=== PATIENT | female | born 1940 | race Caucasian/White ===

== ENCOUNTER 2017-09-16 15:19 | Inpatient (IN) | payer BC, MEDICARE ==
[~2017-09-16] VITALS: Ht 165.1 cm; Wt 49.9 kg
[2017-09-16 16:12] LABS: CARBON DIOXIDE 25 mmol/L (21-32); CHLORIDE 101 mmol/L (98-107); CREATININE 0.7 mg/dL (0.6-1.3); GLUCOSE 91 mg/dL (74-106); POTASSIUM 4.6 mmol/L (3.5-5.1); UREA NITROGEN, BLOOD 17 mg/dL (7-18)
[2017-09-16] MEDS ORDERED: IV NORMAL SALINE 1000 ML BAG IV ONE (16:15)
[2017-09-16 16:16] LABS: BASOPHILS % (AUTO) 0.1 % (0.0-2.0); EOSINOPHILS # (AUTO) 0.1 K/uL (0.0-0.7); EOSINOPHILS % (AUTO) 1.2 % (0.0-7.0); HEMATOCRIT 40.5 % (31.2-41.9); HEMOGLOBIN 13.3 g/dL (10.9-14.3); LYMPHOCYTES % (AUTO) 16.4 % (20.5-51.5); MEAN CORPUSCULAR HEMOGLOBIN 28.4 uug (24.7-32.8); MEAN CORPUSCULAR HGB CONC 33 g/dL (32.3-35.6); MEAN CORPUSCULAR VOLUME 86.5 fL (75.5-95.3); MONOCYTES # (AUTO) 0.5 K/uL (2.0-10.0); NEUTROPHILS # (AUTO) 4.7 K/uL (1.8-8.9); NEUTROPHILS % (AUTO) 74.3 % (38.5-71.5); PLATELET COUNT (AUTO) 156 K/uL (179-408); RED BLOOD CELL COUNT(AUTO) 4.68 MIL/uL (3.63-4.92); WHITE BLOOD COUNT (AUTO) 6.4 K/uL (3.8-11.8)
[2017-09-16 16:17] LABS: ALANINE AMINOTRANSFERASE 32 U/L (14-59); ALKALINE PHOSPHATASE 89 U/L (50-136); ASPARTATE AMINOTRANSFERASE 17 U/L (15-37); BILIRUBIN,DIRECT 0.1 mg/dL (0.0-0.2); BILIRUBIN,TOTAL 0.4 mg/dL (0.2-1.0); TOTAL PROTEIN, SERUM 6.8 g/dL (6.4-8.2)
[2017-09-16] MEDS ORDERED: NEOMY/BACITRA/POLYMYXIN B OINT UD PACKET TP ONE ×2 (17:00→17:07)
[2017-09-16] MEDS ORDERED: SULFAMETH/TRIMETH 800/160 MG TABLET PO ONE (17:00)
[2017-09-16] MEDS ORDERED: SULFAMETH/TRIMETH 800/160 MG TABLET ONE (17:07)
[2017-09-16 17:51] LABS: *BILIRUBIN,URIN NEGATIVE (NEGATIVE); *BLOOD, URINE NEGATIVE (NEGATIVE); *CLARITY,URINE CLEAR (CLEAR); *COLOR,URINE YELLOW (YELLOW); *KETONES,URINE NEGATIVE (NEGATIVE); *PROTEIN,URINE NEGATIVE (NEGATIVE); *UROBILINOGEN,URINE 0.2 E.U./dl (NORMAL); LEUKOCYTE ESTERASE ,URINE NEGATIVE (NEGATIVE); NITRITE, URINE NEGATIVE (NEGATIVE); PH,URINE 7.5 (5.0-8.0); UGLUCOSE NEGATIVE (NEGATIVE)
[2017-09-16 17:55] LABS: WBC,URINE NONE SEEN /HPF (0-3)
--- NOTE | 2017-09-16 20:36 | NUR ---
Report given to Zander COLLIER Tele.
[2017-09-16] MEDS ORDERED: ACETAMINOPHEN 325 MG TABLET PO PRN (21:00)
[2017-09-16] MEDS ORDERED: ZOLPIDEM 5 MG TABLET PO PRN (21:00)
[2017-09-16] MEDS ORDERED: ONDANSETRON 4 MG/2 ML VIAL IV PRN (21:00)
[2017-09-16] MEDS ORDERED: MAGNESIUM HYDROXIDE 30 ML LIQUID UDC PO PRN (21:00)
[2017-09-16 21:15] VITALS: BP 147/60
--- NOTE | 2017-09-16 21:49 | NUR ---
RECEIVED ADMIT REPORT FROM AMIRA YOUNG IN ER. PT ARRIVED ON TELE FLOOR AT 2044 VIA GURNEY. PT IS A/OX4, DENIES PAIN, C/P, SOB, N/V. PT IS AMBULATORY, SELF-AMBULATED TO TELE BED. PT IS SINUS LOULOU ON TELE MONITORING (HR 55). PT DENIES HAVING LOC AND INJURY AT TIME OF NEAR SYNCOPE. PT HAS A CLEAN GAUZE ON RIGHT KNEE COVERING A FRESH WOUND THAT APPEARS INFECTED. PT STATES SHE OBTAINED THE WOUND WHEN SHE TRIPPED IN HER [place]. V/S WNL, AFEBRILE.
--- NOTE | 2017-09-17 00:05 | NUR ---
PT REFUSED MIDNIGHT V/S CHECK. PT ALSO REQUESTS TO BE NOT DISTURBED FOR V/S CHECK AT 0400. PT STABLE AT THIS TIME, NO PAIN, C/P, SOB, N/V.
[2017-09-17 04:00] VITALS: BP 137/66
[2017-09-17 06:57] LABS: BASOPHILS % (AUTO) 0.4 % (0.0-2.0); EOSINOPHILS # (AUTO) 0.1 K/uL (0.0-0.7); EOSINOPHILS % (AUTO) 2.1 % (0.0-7.0); HEMATOCRIT 37.6 % (31.2-41.9); HEMOGLOBIN 12.3 g/dL (10.9-14.3); LYMPHOCYTES % (AUTO) 20.9 % (20.5-51.5); MEAN CORPUSCULAR HEMOGLOBIN 29.1 uug (24.7-32.8); MEAN CORPUSCULAR HGB CONC 33 g/dL (32.3-35.6); MEAN CORPUSCULAR VOLUME 88.8 fL (75.5-95.3); MONOCYTES # (AUTO) 0.5 K/uL (2.0-10.0); MONOCYTES % (AUTO) 10.1 % (0.0-11.0); NEUTROPHILS # (AUTO) 3.1 K/uL (1.8-8.9); NEUTROPHILS % (AUTO) 66.5 % (38.5-71.5); PLATELET COUNT (AUTO) 125 K/uL (179-408); RED BLOOD CELL COUNT(AUTO) 4.23 MIL/uL (3.63-4.92); WHITE BLOOD COUNT (AUTO) 4.7 K/uL (3.8-11.8)
[2017-09-17] MEDS ORDERED: PANTOPRAZOLE SODIUM 40 MG TABLET.DR PO SCH (07:00)
[2017-09-17 07:03] LABS: IRON, SERUM 74 ug/dL (50-175)
--- NOTE | 2017-09-17 07:05 | NUR ---
RECEIVED PATIENT ON BED ASLEEP, AAOX4, NO ACUTE DISTRESS NOTED. ON TELE SB. IV ACCESS ON RFA #[id number] INTACT AND PATENT. NO COMPLAINTS OF PAIN/DISCOMFORT AT THIS TIME. COMFORT MEASURES PROVIDED. CALL LIGHT WITHIN REACH. WILL CONTINUE TO MONITOR CLOSELY.
[2017-09-17 07:09] LABS: ALANINE AMINOTRANSFERASE 28 U/L (14-59); ALKALINE PHOSPHATASE 84 U/L (50-136); ASPARTATE AMINOTRANSFERASE 19 U/L (15-37); BILIRUBIN,TOTAL 0.4 mg/dL (0.2-1.0); CARBON DIOXIDE 30 mmol/L (21-32); CHLORIDE 106 mmol/L (98-107); CREATININE 0.8 mg/dL (0.6-1.3); GLUCOSE 84 mg/dL (74-106); MAGNESIUM 2.1 mg/dL (1.8-2.4); PHOSPHOROUS 4.5 mg/dL (2.5-4.9); POTASSIUM 3.9 mmol/L (3.5-5.1); TOTAL PROTEIN, SERUM 6.3 g/dL (6.4-8.2); UREA NITROGEN, BLOOD 14 mg/dL (7-18)
[2017-09-17] MEDS ORDERED: LEVO125T PO (09:31)
[2017-09-17 11:14] VITALS: BP 147/64
[2017-09-17 15:38] VITALS: BP 142/65
--- NOTE | 2017-09-17 18:18 | NUR ---
DISCHARGED PATIENT IN STABLE CONDITION. DISCHARGE PAPERS GIVEN AND EXPLAINED TO PATIENT. PRESCRIPTION GIVEN. REFUSED MEDICATION EDUCATION FROM PHARMACIST. IV ACCESS REMOVED. ID BAND DISPOSED PROPERLY. BREATHING TX GIVEN BEFORE LEAVING PER PTS REQUEST WELL TOLERATED. ESCORTED PATIENT DOWN TO LOBBY IN WHEELCHAIR, LEFT HOSPITAL VIA PRIVATE CAR ACCOMPANIED BY DAUGHTER.
== END 2017-09-17 19:20 | disposition home or self-care (01) | DRG 69 ==
LOC: ER 15:21 → TELE 20:40
PROVIDERS: ADMIT Internal Medicine; ATTEND Internal Medicine
DX: G45.9 Transient cerebral ischemic attack, unspecified (principal); E03.9 Hypothyroidism, unspecified; G25.0 Essential tremor; S80.211A Abrasion, right knee, initial encounter; L08.9 Local infection of the skin and subcutaneous tissue, unspecified; X58.XXXA Exposure to other specified factors, initial encounter; Y92.89 Other specified places as the place of occurrence of the external cause; G47.00 Insomnia, unspecified; R00.1 Bradycardia, unspecified; D69.6 Thrombocytopenia, unspecified; E78.00 Pure hypercholesterolemia, unspecified; Z53.20 Procedure and treatment not carried out because of patient's decision for unspecified reasons
CPT/HCPCS: 36415; 70030-TC; 71045; 83550; 83735; 84100; 84443; 85025; 85730; 93005; 93307; 93880; A4663; J7030